=== PATIENT | female | born 1975 | race African-American/Black ===

== ENCOUNTER 2018-10-20 08:51 | Inpatient (IN) | payer MEDICAID, OTHER ==
[~2018-10-20 08:51] MED LIST: ACETAMINOPHEN 1,000 MG/100 ML INJ IV ONE; DESFLURANE 240 ML LIQUID IH ONE; DEXAMETHASONE SOD PHOS 4 MG/ML VIAL ONE; ENOXAPARIN SODIUM 40 MG/0.4 ML DISP.SYRIN SQ ONE; ESMOLOL HCL 100 MG/10 ML IV ONE; FAMOTIDINE 20 MG/2 ML VIAL ONE; FENTANYL CITRATE/PF 250 MCG/5 ML INJ. ONE; GLYCOPYRROLATE 0.2 MG/1 ML 1 ML ONE; HYDROmorphone HCL/PF 1 MG/ML VIAL ONE; KETOROLAC TROMETHAMINE 30 MG/1ML VIAL ONE; LACTATED RINGERS 1,000 ML IV.SOLN IV ONE; LIDOCAINE HCL 2% PF 100MG/5ML VIAL IJ ONE; MIDAZOLAM HCL 2 MG/2 ML VIAL ONE; ONDANSETRON HCL/PF 4 MG/ 2ML VIAL ONE; PHENYLEPHRINE HCL 10 MG/1 ML ONE; PROPOFOL 200 MG/20 ML VIAL IV ONE; ROCURONIUM BROMIDE 10 MG/ML 5ML VIAL ONE; SCOPOLAMINE HYDROBROMIDE 1.5MG/72HR PATCH TD ONE; SUGAMMADEX SODIUM 200 MG/2 ML VIAL IV ONE; ceFAZolin SODIUM 1 GM VIAL ONE; ePHEDrine SULFATE 50 MG/1 ML IVP ONE
[2018-10-20] MEDS ORDERED: 0.9 % SODIUM CHLORIDE 1,000 ML IV ONE (13:27)
[2018-10-20] MEDS ORDERED: PROMETHAZINE HCL 25 MG in 0.9 % SODIUM CHLORIDE 50 ML IV PRN (13:32)
[2018-10-20] MEDS ORDERED: KETOROLAC TROMETHAMINE 30 MG/1ML VIAL IVP PRN (13:32)
[2018-10-20] MEDS ORDERED: LEVALBUTEROL HCL 1.25 MG/3 ML AMPUL.NEB NEB PRN (13:32)
[2018-10-20] MEDS ORDERED: 0.9 % SODIUM CHLORIDE 1,000 ML IV SCH (13:45)
[2018-10-20 14:47] VITALS: BMI 90.3
[2018-10-20] MEDS: MORPHINE SULFATE 4 MG/ML PREFILLED SYR IVP PRN ×3 (15:11→19:42)
[2018-10-20] MEDS ORDERED: ceFAZolin SODIUM 1 GM VIAL IV SCH (19:00)
[2018-10-20] MEDS: CEFAZOLIN SODIUM/DEXTROSE,ISO 1 GM/50 ML PIGGYBACK IV SCH (19:26)
[2018-10-20] MEDS: ONDANSETRON HCL/PF 4 MG/ 2ML VIAL IVP PRN (19:36)
[2018-10-20] MEDS ORDERED: 0.9 % SODIUM CHLORIDE 50 ML IV ONE (19:52)
[2018-10-20] MEDS: 0.9 % SODIUM CHLORIDE 1,000 ML IV SCH (20:23)
[2018-10-20] MEDS: FAMOTIDINE 20 MG/2 ML VIAL IVP SCH (20:25)
[2018-10-20] MEDS ORDERED: diphenhydrAMINE HCL 50 MG/ML VIAL IVP ONE (22:19)
[2018-10-21] MEDS: 0.9 % SODIUM CHLORIDE 1,000 ML IV SCH ×5 (03:59→22:28)
[2018-10-21] MEDS: CEFAZOLIN SODIUM/DEXTROSE,ISO 1 GM/50 ML PIGGYBACK IV SCH (04:01)
[2018-10-21] MEDS ORDERED: ACETAMINOPHEN 325 MG TABLET PO PRN (05:23)
[2018-10-21] MEDS ORDERED: MAG HYDROX/ALUMINUM HYD/SIMETH 30 ML UDC PO ONE (07:29)
[2018-10-21] MEDS ORDERED: 0.9 % SODIUM CHLORIDE 50 ML IV ONE ×2 (07:35→20:36)
[2018-10-21] MEDS: FAMOTIDINE 20 MG/2 ML VIAL IVP SCH ×2 (07:44→20:48)
[2018-10-21] MEDS ORDERED: PROMETHAZINE HCL IV PRN (09:00)
[2018-10-21] MEDS ORDERED: SODIUM CHLORIDE 0.9% IV PRN (09:00)
[2018-10-21] MEDS: HYDROCODON-ACETAMIN 7.5-325/15ML SOLN UD CUP PO PRN ×2 (10:16→22:25)
--- NOTE | 2018-10-21 10:21 | History and Physical Report ---
History of Present Illnes - History of Present Illness Reason for Visit: S/P Gastric Sleeve History of Present Illness: Patient admitted today for sleeve gastrectomy. Patient tolerated procedure well. She will be admitted for IVF for hydration, IV pain control, Lovenox & SCDs for DVT prevention, Incentive Spirometry for respiratory illness prevention, and advancement of diet per gastric protocol. 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 denies: Diabetes, Hypothyroidism - Past Surgical History Past Surgical History: None - Past Family History Mother Family History: DM Father Family History: Other (- unknown medical hx) - Past Social History Smoke: No Alcohol: None Drugs: None Lives: With Family Domestic Violence: Negative - Health Maintenance Health Maintenance: denies: Influenza Vaccine, Pneumococcal Vaccine Influenza Vaccine: No Pneumonia Vaccine: No Resuscitation Status: Resusciation Status Resuscitation Status Full Code - Unable to Obtain History Unable to Obtain: No Review of Systems - Review of Systems Constitutional: negative: Fever, Chills Eyes: negative: pain, vision change ENT: negative: Ear Pain, Nose Pain, Throat Pain Respiratory: negative: Cough, Shortness of Breath Cardiovascular: negative: Chest Pain, Palpitations Gastrointestinal: Nausea, Abdominal Pain. negative: Vomiting Genitourinary: negative: Dysuria Musculoskeletal: negative: Back Pain Skin: negative: Rash Neurological: negative: Incoordination, Confusion - Medications/Allergies Allergies/Adverse Reactions: Allergies Allergy/AdvReac Type Severity Reaction Status Date / Time No Known Allergies Allergy Unverified 10/20/18 13:26 Current Inpatient Medications: Current Inpatient Medications Acetaminophen (Tylenol) 650 mg PO Q4H PRN PRN Reason: Fever >101 Last Admin: 10/21/18 05:39 Dose: 650 mg Enoxaparin Sodium (Lovenox) 40 mg SQ QD PRABHA Stop: 11/04/18 13:59 Famotidine (Pepcid) 20 mg IVP BID PRABHA Stop: 10/24/18 20:59 Last Admin: 10/21/18 07:44 Dose: 20 mg Sodium Chloride (Normal Saline) 1,000 mls @ 100 mls/hr IV Q10H [facility] Last Admin: 10/21/18 09:39 Dose: Not Given Promethazine HCl 25 mg/ Sodium (Chloride) 101 mls @ 200 mls/hr IV Q6 PRN PRN Reason: Nausea / Vomiting Ketorolac Tromethamine (Toradol) 30 mg IVP Q6 PRN PRN Reason: For Mild Pain Stop: 10/24/18 13:31 Levalbuterol HCl (Xopenex) 1.25 mg NEB Q4 PRN PRN Reason: SOA, Dyspnea, or Wheezing Stop: 10/24/18 13:31 Morphine Sulfate () 4 mg IVP Q2 PRN PRN Reason: Severe Pain Stop: 10/24/18 13:31 Last Admin: 10/20/18 19:42 Dose: 4 mg Ondansetron HCl (Zofran 4 Mg/2 Ml) 4 mg IVP Q6H PRN PRN Reason: Nausea / Vomiting Stop: 10/24/18 13:31 Last Admin: 10/20/18 19:36 Dose: 4 mg Exam - Exam Vital Signs: Vital Signs (72 hours) 10/20/18 10/20/18 10/20/18 13:32 14:00 14:05 Temperature 97.3 F L 97.3 F L Pulse Rate [ Apical] Pulse Rate [ 89 69 Left] Respiratory 16 18 Rate Blood Pressure 109/66 92/54 [Left Arm] O2 Sat by Pulse 97 97 94 Oximetry 10/20/18 10/20/18 10/20/18 17:32 18:00 21:00 Temperature 96.4 F L Pulse Rate [ 88 Apical] Pulse Rate [ Left] Respiratory 20 Rate Blood Pressure 120/82 [Left Arm] O2 Sat by Pulse 94 94 100 Oximetry 10/20/18 10/20/18 10/21/18 21:34 22:00 01:00 Temperature 96.7 F L Pulse Rate [ 98 H Apical] Pulse Rate [ 69 Left] Respiratory 20 20 Rate Blood Pressure 139/71 [Left Arm] O2 Sat by Pulse 100 96 Oximetry 12/12/18 12/12/18 12/12/18 01:18 05:00 05:45 Temperature 97.5 F L 101.4 F H Pulse Rate [ Apical] Pulse Rate [ 94 H 100 H Left] Respiratory 18 18 Rate Blood Pressure 153/81 134/75 [Left Arm] O2 Sat by Pulse 96 96 98 Oximetry 10/21/18 10/21/18 10/21/18 09:00 09:59 10:00 Temperature 98.3 F Pulse Rate [ Apical] Pulse Rate [ 65 Left] Respiratory 16 16 Rate Blood Pressure 130/77 [Left Arm] O2 Sat by Pulse 96 96 Oximetry General: Alert, Oriented to Person, Oriented to Place, Oriented to Time, Cooperative, Mild distress HEENT: Atraumatic, PERRLA, Mouth Mucous membr. moist/[place], Nose Mucous membr. moist/[place] Neck: Normal Range of Motion. No: Stridor Lungs: Clear to auscultation, Normal air movement. No: Wheezes, Rales Cardiovascular: Regular rate, Normal S1, Normal S2 Abdomen: Soft, Decreased Bowel Sounds. No: Distended Integumentary: Normal, [place], Warm, Dry Extremities: No edema, Normal pulses, No tenderness/swelling Neurological: Normal gait, Normal speech, Strength Equal Bilat, Sensation intact Psych/Mental Status: Mental status NL, Mood NL, Appropriate Affect Assessment/Plan - Assessment/Plan (1) Status post gastric surgery Status: Acute Current Visit: Yes Plan: Plan for IVF for hydration, IV pain management for 24 hr then transition over to oral. Lovenox & SCDs for DVT prevention, Advance diet as tolerated per gastric protocol, and IV H2 larry (2) Morbid obesity Status: Acute Current Visit: Yes (3) Hypertension Status: Acute Current Visit: Yes Qualifiers: Hypertension type: essential hypertension Qualified Code(s): I10 - Essential (primary) hypertension Plan: Will plan to hold blood pressure medication during hospitalization and monitor BP closely VTE Assessment - RISK FACTOR SCORE VTE RISK FACTOR SCORES: AGE 40-60 YEARS, MAJOR SURGERY/ANESTHESIA TIME > 1 HOUR (Frequent ambulation, SCDs & Lovenox)
--- NOTE | 2018-10-21 10:32 | Inpatient Progress Note ---
Subjective - Required Recertification Statement I anticipate X number of days because-include discharge plan: 1 - Review of Systems Events since last encounter: Patient has done very well since surgery- she has ambulated multiple times in the hallway, using incentive spirometer, and feels that pain is controlled with current treatment. She did have temp of 101 around 5 a.m. and she was given tylenol and used incentive spirometer which corrected the fever. She is tolerating liquid diet with no vomiting. General: Denies: Chills, Night Sweats HEENT: Denies: Head Aches, Visual Changes Pulmonary: Denies: Dyspnea, Cough Cardiovascular: Denies: Chest Pain, Edema Gastrointestinal: Nausea, Abdominal Pain. Denies: Vomiting Genitourinary: Denies: Dysuria Musculoskeletal: Denies: Shoulder Pain, Back Pain Neurological: Denies: Incoordination, Confusion Objective - Exam Vitals and I&O: Vital Signs Temp 98.3 F 10/21/18 09:59 Pulse 65 10/21/18 09:59 Resp 16 10/21/18 10:00 BP 130/77 10/21/18 09:59 Pulse Ox 96 10/21/18 09:59 Intake & Output 10/20/18 10/20/18 10/21/18 11:59 23:59 11:59 Intake Total 655 255 Output Total 1750 1250 Balance -1095 -995 Weight 217 kg Intake: IV 400 right forarm 400 Oral 255 255 Output: Urine 1750 1250 Other: Voiding Method Toilet Toilet # Voids 1 1 General: Alert, Oriented to Person, Oriented to Place, Oriented to Time, Cooperative, Mild distress HEENT: Atraumatic, PERRLA, Mouth Mucous membr. moist/[place], Nose Mucous membr. moist/[place] Neck: No JVD, +2 carotid pulse wo bruit Lungs: Clear to auscultation, Normal air movement, Speaks full Sentences. No: Wheezes, Rales Cardiovascular: Regular rate, Normal S1, Normal S2 Abdomen: Normal bowel sounds, Soft. No: Distended, Rigid Extremities: No edema, Normal pulses, No tenderness/swelling Skin: Normal, [place], Warm, Dry Neurological: Normal gait, Normal speech, Strength Equal Bilat, Sensation intact Psych/Mental Status: Mental status NL, Mood NL, Appropriate Affect, Intact Judgment Other physical findings: Patient experiencing intermittent hiccups. - Procedures Procedures: Will decrease IVF to 100 ml/hr and start to transition from IV to oral pain medications Assessment/Plan - Assessment/Plan (1) Status post gastric surgery Status: Acute Current Visit: Yes Plan: Continue IVF at 100cc/hr, SCDs while in bed, Lovenox daily, frequent ambulation, and frequent IS (2) Morbid obesity Status: Acute Current Visit: Yes (3) Hypertension Status: Acute Current Visit: Yes Qualifiers: Hypertension type: essential hypertension Qualified Code(s): I10 - Essential (primary) hypertension Assessment: Blood pressure 130/77 Plan: Will continue to hold BP medication and monitor BP closely
[2018-10-21] MEDS ORDERED: ENOXAPARIN SODIUM 40 MG/0.4 ML DISP.SYRIN SQ SCH (14:00)
[2018-10-22] MEDS: HYDROCODON-ACETAMIN 7.5-325/15ML SOLN UD CUP PO PRN (07:20)
[2018-10-22] MEDS: ONDANSETRON HCL/PF 4 MG/ 2ML VIAL IVP PRN (07:20)
[2018-10-22] MEDS: 0.9 % SODIUM CHLORIDE 1,000 ML IV SCH (07:29)
--- NOTE | 2018-10-22 10:24 | Discharge Summary ---
Discharge Summary - Discharge Sumary History of Present Illness: Patient admitted today for sleeve gastrectomy. Patient tolerated procedure well. She will be admitted for IVF for hydration, IV pain control, Lovenox & SCDs for DVT prevention, Incentive Spirometry for respiratory illness prevention, and advancement of diet per gastric protocol. Condition at Discharge: Stable Home Medications: Ambulatory Orders Medication Instructions Recorded Lisinopril/Hydrochlorothiazide 1 each PO DAILY 10/20/18 [Zestoretic] Hydrocodone/Acetaminophen 10 ml PO Q6H PRN #250 solution 10/22/18 [Hydrocodone-Acetamn 7.5-325/15] Promethazine HCl [Phenergan] 12.5 mg PO Q6H PRN #250 ml 10/22/18 Consultations this Visit: Other (Keep follow up appointment) Procedures this Visit: Other (S/P Gastric Sleeve) Allergies/Adverse Reactions: Allergies Allergy/AdvReac Type Severity Reaction Status Date / Time No Known Allergies Allergy Unverified 10/20/18 13:26 Patient Problems: Current Active Problems Problem Status Onset Hypertension Acute Morbid obesity Acute Status post gastric surgery Acute Discharge Summary: Patient was started on routine postoperative care. Patient did have some mild nausea and vomiting associated with dry heaving. Patient did respond to antiemetics but did very well with Mylanta. We were able to hold patients blood pressure medication during hospitalization and blood pressures remained WNL. Patient has done extremely well walking immediately after surgery and using incentive spirometer. She has family support at home. She feels comfortable with discharge instructions- she states that everything was gone over thoroughly prior to surgery. Patient otherwise had an uneventful postoperative course with the exception of low grade temps that were easily corrected. Hospital Course: Patient did well, she received IVFs, IV pain meds (did well transitioning to oral), she did well with strict gastric diet, patient was up ambulating in the halls frequently and independently (SCDs on while in bed), and patient using incentive spirometer. Physical assessment has been WNL, abdomen soft, mild tenderness, post op sites without redness. During hospitalization patient did have a couple of incidents when temp was greater than 99- she would use IS and temp would be WNL. - Final Diagnosis (1) Status post gastric surgery Problems: Incision sites are without redness. Abdomen is soft with + bowel sounds, mild tenderness on palpation. Patient is tolerating oral meds, following gastric surgery, and up ambulating and using SCDs while in bed. Continuing to use IS. Right or Left: Right (2) Morbid obesity Problems: S/P gastric sleeve Right or Left: Right (3) Hypertension Problems: Blood pressure medication was held during hospitalization. Blood pressure WNL- pt will keep journal and take to follow up appt. Right or Left: Right
[2018-10-22] MEDS ORDERED: PROMETHAZINE HCL 25 MG in 0.9 % SODIUM CHLORIDE 50 ML IV PRN (11:00)
[2018-10-22] MEDS ORDERED: 0.9 % SODIUM CHLORIDE 50 ML IV ONE (11:42)
[2018-10-22] MEDS: FAMOTIDINE 20 MG/2 ML VIAL IVP SCH (11:55)
[2018-10-22 14:01] VITALS: BP 127/84
== END 2018-10-22 14:15 | disposition home or self-care (01) | DRG 621 ==
LOC: SOUTH 08:51 → UNDOADMIN 13:30 → UNDODISIN 10-22 14:15
PROVIDERS: ADMIT Nurse Practitioner Family; ATTEND Nurse Practitioner Family
DX: E66.01 Morbid (severe) obesity due to excess calories (principal); Z68.41 Body mass index [BMI] 40.0-44.9, adult
CPT/HCPCS: 43235; 81025; 88344; 99231; 99232; 99238; J0690; J1100; J1170; J1200; J1650; J1885; J2001; J2250; J2270; J2307; J2405; J2550; J2704; J3490; 43775; A9270-GY; J2370; J7030; J7120